=== PATIENT | male | born 1960 | race Caucasian/White ===

== ENCOUNTER → 2020-08-30 | Day surgery (SDC) | payer BC ==
[2020-08-25 18:10] VITALS: BMI 37.3
[~2020-08-30] MED LIST: LACTATED RINGERS 1,000 ML IV SCH; LIDOCAINE 1% (10MG/ML) FOR IV START INTRADERMA PRN
[2020-08-30 11:16] VITALS: BP 139/94; PULSE 72; RESP 16; TEMP 98
[2020-08-30 12:15] LABS: Basophils # (A) 0.1 k/uL (0-0.2); Basophils % (A) 1 %; Eosinophils # (A) 0.2 k/uL (0-0.7); Eosinophils % (A) 2 %; HCT 43.5 % (39.0-53.0); Lymphocytes # (A) 1.3 k/uL (1.0-4.8); Lymphocytes % (A) 18 %; MCH 32.5 pg (25.0-35.0); MCHC 34.5 g/dL (31.0-37.0); Mean Platelet Volume 8.6; Monocytes # (A) 0.5 k/uL (0-1.0); Monocytes % (A) 7 %; Neutrophils # (A) 4.8 k/uL (1.3-7.7); Neutrophils % (A) 69 %; Platelet Count 150 k/uL (150-450); RBC 4.63 m/uL (4.30-5.90); RDW 12.4 % (11.5-15.5); WBC 6.9 k/uL (3.8-10.6)
[2020-08-30 12:21] LABS: Albumin 4.2 g/dL (3.5-5.0); Calcium 9.6 mg/dL (8.4-10.2); Potassium 4.6 mmol/L (3.5-5.1); Total Bilirubin 0.9 mg/dL (0.2-1.3); Total Protein 7.5 g/dL (6.3-8.2)
== END ==
LOC: ORWHC2ENDO 10:00
PROVIDERS: ATTEND Internal Medicine Gastroenterology
DX: K83.9 Disease of biliary tract, unspecified (principal); Z53.9 Procedure and treatment not carried out, unspecified reason
CPT/HCPCS: 80053; 85025

== ENCOUNTER → 2020-09-08 | Outpatient (CLI) | payer BC ==
--- NOTE | 2020-09-08 14:44 | CT ---
EXAMINATION TYPE: CT abdomen wo/w con DATE OF EXAM: 09/08/2020 COMPARISON: Outside ultrasound report August 01, 2020 HISTORY: Abnormal findings of Liver and Billary tract CT DLP: 2234.2 mGycm, Automated Exposure Control for Dose Reduction was Utilized. CONTRAST: CT scan of the abdomen is performed with oral and without and with IV Contrast, patient injected with 100 mL of Isovue 300. FINDINGS: LUNG BASES: Partial visualization of a right-sided pacemaker/defibrillator wires. Coronary stent and/ or calcification in the RCA distribution. LIVER/GB: Liver isodense relative to the spleen on noncontrast images consistent with mild diffuse fa tty infiltration. Contracted gallbladder. No intrahepatic biliary dilatation. Common bile duct measur es up to 9 mm at ruth hepatis which is mildly dilated. No obstructing calcified gallstone noted. PANCREAS: No significant abnormality is seen. SPLEEN: No significant abnormality is seen. ADRENALS: No significant abnormality is seen. KIDNEYS: No renal stones on noncontrast images. No concerning solid or cystic renal mass or hydronep hrosis. BOWEL: Oral contrast does not reach colonic level. No suspicious bowel dilatation. Normal appearing a ppendix from base of cecum. LYMPH NODES: No greater than 1cm abdominal lymph nodes are appreciated. OSSEOUS STRUCTURES: [id number] multilevel spurring. Facet arthropathy lower lumbar levels. OTHER: Moderate mixed plaque of the aorta extends into branch vessels. Tiny fat-containing umbilical hernia axial image 53. IMPRESSION: Mild diffuse fatty infiltration of liver confirmed. Mild extrahepatic biliary dilatation without significant intrapelvic biliary dilatation confirmed. No concerning focal intrahepatic mass o r surrounding ascites.
== END ==
LOC: RADCTMAIN 12:34
PROVIDERS: ATTEND Internal Medicine Gastroenterology
DX: K76.0 Fatty (change of) liver, not elsewhere classified (principal); K83.8 Other specified diseases of biliary tract
CPT/HCPCS: 74170; Q9967

== ENCOUNTER 2024-04-20 14:50 | Emergency (ER) | payer BC, OTHER ==
--- NOTE | 2024-04-20 16:04 | ED ---
Abdominal Pain HPI - General Chief Complaint: Abdominal Pain Stated Complaint: Back/abd pain Time Seen by Provider: 04/20/24 14:55 Source: patient Mode of arrival: ambulatory Limitations: no limitations - History of Present Illness Initial Comments: 63-year-old male with past medical history of coronary artery disease status post AICD, diabetes, hypertension who presents emergency department with right lower quadrant abdominal pain and right lower lumbar pain. States that on April 15 he was at work lifting a case of beer. States that he lifted and turned and heard a pop in his lower back. He has had right sided abdominal pain which has progressed and now wraps around to the right lower quadrant. He also has pain that radiates into his testicle. He denies any saddle anesthesia but does admit to some tingling to the anterior right thigh. No bowel or bladder incontinence. He has been taking Advil for the pain and following up with [facility]. He was seen today in clinic. They did recommend that he have some type of imaging performed due to the pain wrapping around to the anterior aspect. He denies any fevers. No weakness in his legs but does have painful range of motion. Patient is ambulatory. No other alleviating, precipitating modifying factors - Related Data Home Medications Medication Instructions Recorded Confirmed Apixaban [Eliquis] 5 mg PO BID 08/25/20 08/25/20 Atorvastatin [Lipitor] 40 mg PO DAILY 08/25/20 08/25/20 Gabapentin [Neurontin] 300 mg PO Q12H 08/25/20 08/25/20 Insulin Aspart [NovoLOG] 0 units SQ AC-LUNCH 08/25/20 08/25/20 Insulin Aspart [NovoLOG] 0 units SQ AC-SUPPER 08/25/20 08/25/20 Insulin Aspart [NovoLOG] 6 units SQ AC-BRKFST 08/25/20 08/25/20 Insulin Detemir (Levemir) [Levemir] 15 unit SQ DAILY 08/25/20 08/25/20 Losartan Potassium [Cozaar] 100 mg PO DAILY 08/25/20 08/25/20 Spironolactone [Aldactone] 25 mg PO DAILY 08/25/20 08/25/20 carvediloL [Coreg] 25 mg PO BID 08/25/20 08/25/20 hydroCHLOROthiazide [Hydrodiuril] 25 mg PO DAILY 08/25/20 08/25/20 Allergies Allergy/AdvReac Type Severity Reaction Status Date / Time fish derived Allergy Swelling/Ra Verified 04/20/24 16:48 sh Review of Systems ROS Statement: Those systems with pertinent positive or pertinent negative responses have been documented in the HPI. ROS Other: All systems not noted in ROS Statement are negative. Past Medical History Past Medical History: Coronary Artery Disease (CAD), Diabetes Mellitus, Hypertension Additional Past Medical History / Comment(s): AICD. Type I DM. c/o "tingling on Rt side of stomach." History of Any Multi-Drug Resistant Organisms: None Reported Past Surgical History: AICD, Coronary Bypass/CABG, Heart Catheterization, Hernia Repair, Orthopedic Surgery Additional Past Surgical History / Comment(s): 5 way CABG 08/2019. [employer] AICD. Rt Knee surg. Abd hernia. Colonoscopy Past Anesthesia/Blood Transfusion Reactions: No Reported Reaction Type of Cardiac Device: AICD Device Placement Date:: 02/08/20 Past Psychological History: No Psychological Hx Reported Smoking Status: Former smoker - Past Family History Mother Family Medical History: No Reported History General Exam Limitations: no limitations General appearance: alert, in no apparent distress Head exam: Present: atraumatic, normocephalic, normal inspection Eye exam: Present: normal appearance, PERRL, EOMI. Absent: scleral icterus, conjunctival injection, periorbital swelling ENT exam: Present: normal exam, mucous membranes moist Neck exam: Present: normal inspection. Absent: tenderness, meningismus, lymphadenopathy Respiratory exam: Present: normal lung sounds bilaterally. Absent: respiratory distress, wheezes, rales, rhonchi, stridor Cardiovascular Exam: Present: regular rate, normal rhythm, normal heart sounds. Absent: systolic murmur, diastolic murmur, rubs, gallop, clicks GI/Abdominal exam: Present: soft, tenderness (Right lower quadrant pain), normal bowel sounds. Absent: distended, guarding, rebound, rigid Extremities exam: Present: normal inspection, full ROM, normal capillary refill. Absent: tenderness, pedal edema, joint swelling, calf tenderness Back exam: Present: CVA tenderness (L), paraspinal tenderness (l4-l5. 5/5 muscle strength bilateral lower extremities, to include hip flexors, knee extensors, ankle and great toe dorsiflexors and foot plantar flexors. Intact sensation over the medial, lateral and dorsal bilateral lower extremities) Neurological exam: Present: alert, oriented X3, CN II-XII intact Psychiatric exam: Present: normal affect, normal mood Skin exam: Present: warm, dry, intact, normal color. Absent: rash Course Vital Signs 04/20/24 14:54 Temperature 97.5 F L Pulse Rate 80 Respiratory 22 Rate Blood Pressure 127/84 O2 Sat by Pulse 98 Oximetry Medical Decision Making - Medical Decision Making Was pt. sent in by a medical professional or institution (, PA, BORE MILL OPERATOR, urgent care, hospital, or long term...) When possible be specific @ -Sent in by the [facility] Did you speak to anyone other than the patient for history (EMS, parent, family, police, friend...)? What history was obtained from this source @ -No Did you review nursing and triage notes (agree or disagree)? Why? @ -I reviewed and agree with nursing and triage notes Were old charts reviewed (outside hosp., previous admission, EMS record, old EKG, old radiological studies, urgent care reports/EKG's, long term records)? Report findings @ -I reviewed the clinic note from [facility] which was completed today Differential Diagnosis (chest pain, altered mental status, abdominal pain women, abdominal pain men, vaginal bleeding, weakness, fever, dyspnea, syncope, headache, dizziness, GI bleed, back pain, seizure, CVA, palpatations, mental health, musculoskeletal)? @ -Differential Back Pain: Strain, zoster, cauda equina syndrome, epidural abscess, vertebral osteomyelitis, discitis, fracture, subluxation, disc herniation, DJD, spinal stenosis, dissection, AAA, pancreatitis, peptic ulcer disease, pyelonephritis, kidney stone, this is not meant to be an all-inclusive list. EKG interpreted by me (3pts min.). @ -Not done X-rays interpreted by me (1pt min.). @ -None done CT interpreted by me (1pt min.). @ -Yes and demonstrates herniated disc at L4-L5 U/S interpreted by me (1pt. min.). @ -None done What testing was considered but not performed or refused? (CT, X-rays, U/S, labs)? Why? @ -None What meds were considered but not given or refused? Why? @ -Steroids and muscle relaxers were offered however patient wanted to go through [facility] for his prescriptions Did you discuss the management of the patient with other professionals (professionals i.e. , PA, BORE MILL OPERATOR, lab, RT, psych nurse, clinical social worker, emergency medicine medical director, teacher, quality officer, therapeutic case manager)? Give summary @ -No Was smoking cessation discussed for >3mins.? @ -No Was critical care preformed (if so, how long)? @ -No Were there social determinants of health that impacted care today? How? (Homelessness, low income, unemployed, alcoholism, drug addiction, transportation, low edu. Level, literacy, decrease access to med. care, half-way, rehab)? @ -No Was there de-escalation of care discussed even if they declined (Discuss DNR or withdrawal of care, Hospice)? DNR status @ -No What co-morbidities impacted this encounter? (DM, HTN, Smoking, COPD, CAD, Cancer, CVA, ARF, Chemo, Hep., AIDS, mental health diagnosis, sleep apnea, morbid obesity)? @ -None Was patient admitted / discharged? Hospital course, mention meds given and route, prescriptions, significant lab abnormalities, going to OR and other pertinent info. @ -Upon arrival patient seen and evaluated in [facility] . Thorough history and physical exam was performed. CT was performed which demonstrates a normal appe ndix. No hernia. Patient does have a herniated disc at L4-L5. This is discussed with the patient. He has no signs of cauda equina. Patient was discharged home at this time and follow back up with [facility]. I did offer pain medications, steroids and muscle relaxers however patient wanted to go through his [facility] doctor for these recommendations. He is to call and make an appointment follow-up within next 2 to 3 days and return for any new or worsening symptoms Undiagnosed new problem with uncertain prognosis? @ -No Drug Therapy requiring intensive monitoring for toxicity (Heparin, Nitro, Insulin, Cardizem)? @ -No Were any procedures done? @ -No Diagnosis/symptom? @ -Acute lumbar back pain, lumbar radiculopathy, lifting injury Acute, or Chronic, or Acute on Chronic? @ -Acute Uncomplicated (without systemic symptoms) or Complicated (systemic symptoms)? @ -Complicated Side effects of treatment? @ -No Exacerbation, Progression, or Severe Exacerbation? @ -No Poses a threat to life or bodily function? How? (Chest pain, USA, NC, pneumonia, PE, COPD, DKA, ARF, appy, cholecystitis, CVA, Diverticulitis, Homicidal, Suicidal, threat to staff... and all critical care pts) @ -No Disposition Clinical Impression: Herniated disc, Lumbar radiculopathy Disposition: HOME SELF-CARE Condition: Stable Instructions (If sedation given, give patient instructions): Lumbar Disc Herniation (ED), Lumbar Radiculopathy (ED) Additional Instructions: Please follow-up with [facility] for further management of your pain. They may follow up the CAT scan with an MRI if they feel that this is appropriate. Return for any new or worsening symptoms Is patient prescribed a controlled substance at d/c from ED?: No Referrals: Nupur Eller MD [Primary Care Provider] - 1-2 days Time of Disposition: 16:48
--- NOTE | 2024-04-20 16:26 | CT ---
EXAMINATION TYPE: CT abdomen pelvis wo con, CT lumbar spine wo con CT DLP: Combined DLP of 1839.4 mGycm, Automated exposure control for dose reduction was used. DATE OF EXAM: 04/20/2024 4:01 PM COMPARISON: CT abdomen pelvis most recent from 09/08/2020 CLINICAL INDICATION: Male, 63 years old with history of rlq/groin pain; RLQ/Groin pain. TECHNIQUE: Axial CT abdomen pelvis wo con, CT lumbar spine wo con;Sagittal and coronal reformats wer e created on a separate workstation. Axial imaging of the lumbar spine with sagittal and coronal reformats. Contrast used: mL of , (none if empty) Oral contrast used: without Oral Contrast (none if empty) FINDINGS: LOWER CHEST: Cardiac conduction the terminating in right ventricle and atrium. Coronary artery atherosclerosis. The heart is mildly enlarged for size. ABDOMEN LIVER: Unremarkable GALLBLADDER AND BILE DUCTS: Unremarkable. PANCREAS: Unremarkable. SPLEEN: Unremarkable. ADRENAL GLANDS: Unremarkable. KIDNEYS AND URETERS: Streaky edema/fat stranding around the kidneys bilaterally. No evidence of hydro nephrosis or renal calculus. The ureters are unremarkable. PELVIS BLADDER: Unremarkable REPRODUCTIVE: Unremarkable. ABDOMEN & PELVIS STOMACH AND BOWEL: No evidence of bowel obstruction. Scattered colonic diverticula. PERITONEUM/RETROPERITONEUM: No evidence of pneumoperitoneum or free fluid. VASCULATURE: Severe atherosclerotic calcifications are present throughout the abdominal aorta and its branches. No evidence of aortic aneurysm. MUSCULOSKELETAL: No acute osseous abnormalities. Moderate disc degeneration changes are present throu ghout the thoracolumbar spine. L3-L4 moderate neural foraminal stenosis bilaterally secondary to face t arthropathy.L4-L5 disc bulging with facet joint arthropathy with moderate bilateral neural foramina l stenosis in mild to moderate spinal canal stenosis. L5-S1 facet joint arthropathy with moderate prudence ateral neural foraminal stenosis. Lucent area within the L4 vertebral body is unchanged from prior in 2020. No evidence for spinal fracture. LYMPH NODES: No gross evidence for lymphadenopathy. SOFT TISSUE/ABDOMINAL WALL: Fat-containing left inguinal hernia. Surgical clip in the right anterior thigh. IMPRESSION: 1. No evidence for acute abdominal process. The appendix is normal. 2. L4-L5 disc bulge with at least mild to moderate spinal canal stenosis. 3. L4 lucent lesion measuring 12 mm. Stable back to 09/08/2020 and likely benign. 4. Mild multilevel degeneration changes. L3-L4 and L4-L5 moderate bilateral neural foraminal stenosi s. 5. Mild cardiomegaly. 6. Severe atherosclerosis of the arterial vasculature. 7. Fat-containing left inguinal hernia. No inguinal hernia visualized. [facility], Workstation: [id number], 04/20/2024 4:23 PM
[2024-04-20] MEDS: LIDOCAINE 4% PATCH TOPICAL ONE (16:46)
[2024-04-20 17:16] VITALS: BP 122/82; PULSE 73; RESP 18; TEMP 97.7
== END 2024-04-20 17:16 | disposition home or self-care (01) ==
LOC: EC 14:50
CPT/HCPCS: 72131; 74176; 99284

== ENCOUNTER 2024-05-27 07:37 | Day surgery (SDC) | payer BC, OTHER ==
[2024-05-27] MEDS: diazePAM 5 MG TAB PO STA (08:43)
[2024-05-27 09:31] VITALS: TEMP 97.5
--- NOTE | 2024-05-27 11:31 | CT ---
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 Automated exposure control for dose reduction was used. FINDINGS: The lumbar vertebral segments are normal in height and alignment and there is no fracture or subluxat ion. The disc spaces are well preserved in height. There is mild degenerative disc disease at the T11/T12 level where there is anterior spondylosis and mild vacuum phenomena. There is mild anterior spondylos is throughout the lumbar spine. There is no lumbar disc herniation. There is mild facet arthropathy at the L3-4, L4-5 and L5-S1 levels. At the L4-5 level, there is severe spinal stenosis secondary to circumferential disc bulge and marke d thickening of the ligamentum flavum. There is mild sacroiliitis. There is no bony neural foraminal encroachment. IMPRESSION: Severe spinal stenosis at the L4-5 level as described above. No significant lumbar degenerative disc disease. No lumbar disc herniation. No spondylolysis or spondylolisthesis. [facility], , 05/27/2024 11:28 AM
[2024-05-27 11:34] VITALS: RESP 16
--- NOTE | 2024-05-27 12:10 | FL ---
EXAMINATION TYPE: FL myelogram lumbosacral DATE OF EXAM: 05/27/2024 11:09 AM COMPARISON: CT same day CLINICAL INDICATION:Male, 63 years old with history of M47.816 SPONDYLOSIS W/O MYELOPATHY OR RADICULO PATH; TECHNIQUE/FINDINGS: Informed consent was obtained including discussion of the risks and benefits. Timeout was taken per p rotocol. Real-time fluoroscopy was performed to localize the lumbar spine access site. The patient wa s prepped and draped. Under sterile technique with local anesthesia a 22-gauge spinal needle was intr oduced into what was thought the arachnoid space 12 cc of Isovue-200 M was injected into the epidural fat space adjustment of the needle was then taken and clear CSF was withdrawn and A total of 12 cc o f Isovue-300 M was injected with appropriate opacification of the thecal sac. 12 cc of Isovue-200 M w as injected into the epidural fat space. Total fluoroscopy time was 4 min 31 seconds Total fluoroscopic images 0. Radiographs taken: 18 DAP: Not Reported by machine [id number] IMPRESSION: Successful lumbar puncture with injection for CT myelogram. CT pending. [facility], , 05/27/2024 12:08 PM
[2024-05-27 18:10] VITALS: BP 102/65; PULSE 81
== END 2024-05-27 14:37 | disposition home or self-care (01) ==
LOC: RADPROMAIN 07:37
PROVIDERS: ATTEND Orthopaedic Surgery
DX: M47.26 Other spondylosis with radiculopathy, lumbar region (principal); M48.061 Spinal stenosis, lumbar region without neurogenic claudication; M51.16 Intervertebral disc disorders with radiculopathy, lumbar region; Z79.899 Other long term (current) drug therapy; Z79.82 Long term (current) use of aspirin; Z79.01 Long term (current) use of anticoagulants
CPT/HCPCS: 62304; 72132; Q9966; Q9967

== ENCOUNTER → 2024-09-02 | Outpatient (CLI) | payer BC | END | disposition home or self-care (01) | LOC: LABPAT 12:50 | PROVIDERS: ATTEND Orthopaedic Surgery | DX: Z01.812 Encounter for preprocedural laboratory examination (principal); M48.061 Spinal stenosis, lumbar region without neurogenic claudication; Z22.322 Carrier or suspected carrier of Methicillin resistant Staphylococcus aureus | CPT/HCPCS: 86850; 86900; 86901; 87070 ==

== ENCOUNTER 2024-09-06 05:48 | Day surgery (SDC) | payer BC ==
--- NOTE | 2024-09-05 12:06 | P.HPOR ---
History of Present Illness H&P Date: 09/01/24 .D:Date: 09/01/24 : 05:11pm .T:Title: *PRE-OP H1 [facility] [address] [place] [id number]| PROVIDER: MATTHEW GOOD DO CLINICAL SUMMARY: *Mr. Mcclure is a 63-year-old male with a history of L4-5 spondylosis with stenosis, neurogenic claudication, radiculopathy, and low back pain following a work-related injury on 04/15/2024. Patient reports sharp burning lumbar pain radiating to the right groin and bilateral lower extremities with associated tingling and burning sensation. Currently manages pain with Gabapentin and Celebrex with minimal relief. Physical examination reveals paralumbar tenderness, positive straight leg raise test, L4-5 dermatomal deficit, and 4/5 strength in bilateral lower extremities. CT myelogram demonstrates severe spinal stenosis at L4-5 level. Patient has failed conservative management including physical therapy, activity modification, and medications. After thorough discussion of risks, benefits, and alternatives, patient has elected to proceed with L4-5 laminectomy decompression. Pre-operative clearance has been requested from PCP, and surgery will be scheduled at [facility]. Patient has been advised to remain off work until further notice and continue home exercises as tolerated. DEMOGRAPHICS: Age: 63 year Height: 5'11" Weight: 249 lbs BP:130/70 BMI: 34.78 kg/m2 Occupation: *Sales-off CC: *lumbar pain VAS: * 7 HISTORY: Mr. Mcclure presents to the office today, 09/01/24, for *a pre-operative appointment preceding his L4-5 LAMINECTOMY DECOMPRESSION. 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 In addition to his lumbar pain patient reports that it radiates into the right groin and down the bilateral lower extremities, associated with tingling and burning sensation. Patient states that his symptoms are exacerbated with prolonged ambulation, sitting to standing, and bending. Patient states that he has been off work at this time. He has trialed a heating pad and is currently taking Gabapentin and Celebrex with some relief of his symptoms. He states these are only helping minimally and he is still in severe pain that is making it difficult for his to perform his activities of daily living. Patient ambulates independently. * Patient denies any f/c/sob/cp, perineal numbness or tingling, bowel, or bladder incontinence/retention. * The patients past social, medical, family, surgical history, as well as review of systems, have been reviewed. Please refer to the History and Physical form that has been scanned into our electronic medical record system. * 16 points review of systems completed and as stated in HPI, all other systems reviewed are negative. PAST TREATMENTS: PAST IMAGING: -YES, xray, CT scan, CT myelogram - TRAUMA RELATED: -YES, hurt lifting beer at work - WORK RELATED: -YES, Hurt lifting beer at work - PT IN LAST 6 MONTHS: -YES, no relief - PHYSICIAN DIRECTED HOME EXERCISE PROGRAM: -YES, no relief - ACTIVITY MODIFICATION: -YES - MEDICATIONS: -YES, Gabapentin and Celebrex - ALTERNATIVE INTERVENTIONS (CHIROPRACTIC, ACUPUNCTURE, MASSAGE, RICE): -YES - BRACING: -NO - INJECTIONS (NEVA, TF, RFA): -NO MEDICAL HISTORY: Past Medical History: REVIEWED STATED IN CHART Past Surgical History: REVIEWED STATED IN CHART Social History: REVIEWED STATED IN CHART SMOKING: Never smoker ETOH: None SUBSTANCES: None Family History: REVIEWED STATED IN CHART P1 Current Medications: Rx: apixaban 5 mg tablet Ref: 0 Instructions: take 1 tablet (5 mg) by oral route 2 times per day Rx: aspirin 81 mg tablet,delayed release Ref: 0 Instructions: take 1 tablet (81 mg) by oral route once daily Rx: atorvastatin Ref: 0 Rx: carvediloL 25 mg tablet Ref: 0 Instructions: take 1 tablet (25 mg) by oral route 2 times per day with food Rx: cyclobenzaprine 5 mg tablet Ref: 0 Instructions: take 1 tablet (5 mg) by oral route 3 times per day as needed for muscle spasm Rx: dapagliflozin propanediol 10 mg tablet Ref: 0 Instructions: take 1 tablet (10 mg) by oral route once daily in the morning Rx: furosemide 20 mg tablet Ref: 0 Instructions: take 1 tablet (20 mg) by oral route once daily Rx: levamir , Ref: 0 Rx: Motrin Ref: 0 Rx: NovoLOG U-100 Insulin aspart Ref: 0 Rx: Ozempic Ref: 0 Rx: sacubitriL 49 mg-valsartan 51 mg tablet Ref: 0 Instructions: take 1 tablet by oral route 2 times per day Rx: spironolactone Ref: 0 Rx: gabapentin 600 mg tablet Ref: 0 Instructions: take 1 tablet (600 mg) by oral route 3 times per day P1 PHYSICAL EXAM: General: AOX3, NAD, Well hydrate, well nourished, in no acute distress HEENT: No lumps or masses Extremities: No color changes, no pooling INTEGUMENT: Appearance: Normal color and turgor Surgical Incisions: N/A Hairy Patches: ABSENT Dorsal Skin Dimples: Normal [employer] spots: ABSENT PALPATION: TTP Midline: NO Paracervical: NO Parathoracic: NO Paralumbar: YES SIJ TESTING (Champ's, FABER4, Compression, Distraction, Thigh Thrust, Hip Thrust): TESTED * POSITIVE FINDINGS: NEGATIVE FINDINGS: Champ's, FABER4, Compression, Distraction, Thigh Thrust, Hip Thrust POSTURAL BALANCE: Coronal: BALANCED Sagittal: BALANCED Shoulder height: LEVEL Pelvic Girdle: LEVEL ROM AND APPEARANCE: Neck: UNRESTRICTED Lumbar: RESTRICTED with pain Shoulders: Symmetrical Hips: Symmetrical Knees: Symmetrical Hands: Symmetrical Feet: Symmetrical VASCULAR STATUS: PALPABLE PULSES B/L UE AND LE 2/4 RAD/ULNAR/DP/PT Edema: NONE NEUROLOGICAL EXAMINATION: Mental Status: Awake, alert, fully oriented with normal attention, mehrdad ntration, and memory. Fluent appropriate speech. CRANIAL NERVES: I: Olfactory not assessed. II: Visual acuity normal, no visual field deficit noted with confrontation. III, IV: Normal pupillary reflexes & intact extraocular movements without nystagmus. V, : Intact symmetrical facial sensation. VII: Intact symmetrical facial motor movement: Hearing intact. IX, X: Intact gag, swallow, & normal voice. XI: Sternocleidomastoid, trapezius function intact. XII: Tongue midline with normal movements. TENSIONING: * L'HERMITTE'S SIG:NEG SPURLUNG'S SIGN:NEG UPPER EXTREMITY TENSIONING SIGNS: NEG CUBITAL TUNNEL COMPRESSION:NEG TINELS AT WRIST:NEG STRAIGHT LEG RAISE:POS CONTRALATERAL STRAIGHT LEG RAISE: NEG MOTOR EXAM (0-5/5, NT) Muscle appearance: Symmetrical, without signs of atrophy or dystrophy UPPER EXTREMITY RIGHT LEFT Shoulder Abduction 5 5 Biceps 5 5 Triceps 5 5 Wrist Extension 5 5 Hand Intrinsics 5 5 Master Plumber 5 5 LOWER EXTREMITY RIGHT LEFT Hip Flexion 4 4 Knee Extension 4 4 Knee Flexion 4 4 Dorsiflexion 4 4 Plantarflexion 4 4 EHL 4 4 FHL 4 4 REFLEXES (0-4/2, NT): RIGHT LEFT Bicep 2 2 Brachioradialis 2 2 Triceps 2 2 Patellar 2 2 Achilles 2 2 PATHOLOGICAL REFLEXES: RIGHT LEFT IBARRA'S ABSENT ABSENT CLONUS ABSENT ABSENT BABINSKI ABSENT ABSENT RECTAL TONE: INTACT/NT SENSATION (0-4, NT): Sensation intact to LT and Pain * C5-T1 distribution BUE * L2-S2 distribution BLE *Exceptions below* DERMATOMAL DEFICIT/RADICULAR PATTERN: L4-5 BLE GAIT AND FUNCTIONAL EVALUATION: AMBULATORY AID NONE ROMBERG'S TEST INTACT HAND AND FINGER DEXTERITY INTACT YES DYSDIADOCHOKINESIA EXAM NEG B/L YES TOE/HEEL WALK INTACT WITH GOOD BALANCE YES SQUAT AND RISE W/O ASSISTANCE TO 60 DEG KNEE FLEXION ABLE with pain SINGLE LEG STANCE INTACT with pain TRENDELENBURG NEG IMAGING: XRay Lumbar Multiview (AP, Lateral, Flexion, Extension) with AP pelvis; 5 views taken at [facility] on 05/03/24: Mild multilevel spondylitic and degenerative changes with preserved alignment. Multilevel diminished disc height. L3-L5 foraminal stenosis. Vertebral body heights are preserved. No acute osseous abnormalities. Pelvis: The visualized sacrum and iliac wings are within normal limits. CT scancompleted at [facility] from 04/20/24 of LumbarSpine: IMPRESSION: 1. L4-L5 disc bulge with at least mild to moderate spinal canal stenosis. 2. L4 lucent lesion measuring 12 mm. Stable back to 09/08/2020 and likely benign. 3. Mild multilevel degeneration changes. L3-L4 and L4-L5 moderate bilateral neural foraminal stenosis. CT Myelogram scancompleted at [facility] from 05/27/24 of LumbarSpine: IMPRESSION: Severe spinal stenosis at the L4-5 level as described above. No significant lumbar degenerative disc disease. No lumbar disc herniation. No spondylolysis or spondylolisthesis. IMPRESSION: It was my pleasure to have seen and examined Tru. I reviewed the patient's clinical syndrome, physical findings, and imaging studies during the appointment today. It is my impression that the patient has a diagnosis of. 1.L4-5 spondylosis with stenosis 2.Lower extremity radiculopathy 3. Neurogenic claudication 4. Low back pain PLAN: DISCUSSION: -I have discussed with the patient their clinical signs and symptoms, imaging, and treatment options. We have discussed risks, benefits, potential outcomes and natural course as pertains top their issues. The patient understands and would like to proceed as follows below: SURGICAL RECOMMENDATION -L4-5 LAMINECTOMY DECOMPRESSION THERAPIES - -Cont. with home exercises and home PT exercises as able -Cont. with Heat/Ice as warranted -Cont. with supplementation Vit D, Vit C, Ca2+, High protein diet -OK for massage or other alternative treatment modalities as able. If it exacerbates your sx do not continue ACTIVITY -Continue off work -Recommend walking up to 30 min 2x daily on a flat easy surface with good suppor t. MEDICATIONS -Take as directed -Cont. home medications as directed by your PCP. Check with your PCP for any medication interactions or issues if needed. IMAGING -N/A INJECTIONS -N/A Spine Surgery Risk Review Mr. Mcclure is presenting for evaluation of lumbar pain. It was my pleasure to have seen and examined Mr. Mcclure. In our visit today we have had a chance to go over subjective complaints, physical examination findings and treatments including the natural course history without intervention and various interventional options. The patients imaging demonstrates: XRay Lumbar Multiview (AP, Lateral, Flexion, Extension) with AP pelvis; 5 views taken at [facility] on 05/03/24: Mild multilevel spondylitic and degenerative changes with preserved alignment. Multilevel diminished disc height. L3-L5 foraminal stenosis. Vertebral body heights are preserved. No acute osseous abnormalities. Pelvis: The visualized sacrum and iliac wings are within normal limits. CT scancompleted at [facility] from 04/20/24 of LumbarSpine: IMPRESSION: 1. L4-L5 disc bulge with at least mild to moderate spinal canal stenosis. 2. L4 lucent lesion measuring 12 mm. Stable back to 09/08/2020 and likely benign. 3. Mild multilevel degeneration changes. L3-L4 and L4-L5 moderate bilateral neural foraminal stenosis. CT Myelogram scancompleted at [facility] from 05/27/24 of LumbarSpine: IMPRESSION: Severe spinal stenosis at the L4-5 level as described above. No significant lumbar degenerative disc disease. No lumbar disc herniation. No spondylolysis or spondylolisthesis. On physical exam, Mr. 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 In addition to his lumbar pain patient reports that it radiates into the right groin and down the bilateral lower extremities, associated with tingling and burning sensation. Patient states that his symptoms are exacerbated with prolonged ambulation, sitting to standing, and bending. Patient states that he has been off work at this time. He has trialed a heating pad and is currently taking Gabapentin and Celebrex with some relief of his symptoms. He states these are only helping minimally and he is still in severe pain that is making it difficult for his to perform his activities of daily living. Patient ambulates independently. I have explained to the patient that as their condition progresses it will cause further neurological deficits and eventual paralysis. Based on the patients imaging, physical exam, and the rapid progression and disabling nature of their symptoms, at this time I recommend surgery in the form of a: L4-5 LAMINECTOMY DECOMPRESSION. I discussed the risk and benefits of this procedure at length with Mr. Mcclure. The patient [significant other] agreed to considered pursuing the procedure abovementioned. Prior to surgery, she should follow up with her PCP (Cardio, ID, IM etc) for clearance. Questions were invited and answered, and the patient wishes to proceed as outlined below. Currently, I am recommendin.L4-5 LAMINECTOMY DECOMPRESSION 2.Follow up with PCP for surgical clearance 3.Review of surgical risks and benefits as well as an educational packet on the proposed surgical procedure. Risks: All surgical procedures come with inherent risks, including those related to positioning, anesthesia, intraoperative findings, and postoperative complications. It is important to understand that surgery does not come with any guarantee of a successful outcome as complications and adverse events are always possible. The patient was given a handout in office today discussing the surgical procedure and risks associated with the intervention, both of which were discussed with the patient. These risks include but are not limited to the following: * Experiencing same, different or even worse symptoms in back, neck, arms, or legs compared to before surgery. Requiring further surgery or other forms of treatment presently or at some time in the future at same or other levels of the intended spine surgery. On an extreme but fortunately relatively rare basis severe complication such as blindness, stroke, heart attack, temporary and/or permanent nerve injury, paralysis, coma, or may occur, sometimes without known explanation. Surgical complications may include but are not limited to risk of infection, fluid accumulation in the surgical dissection site, including a seroma or hematoma, that requires additional surgery, wound drainage, bleeding, new numbness or weakness, vision changes/loss, spinal fluid leakage, non-healing and/or infected incision, headaches, difficulty or inability to swallow, hoarseness, hemopneumothorax, pneumothorax, impotence, retrograde ejaculation, vaginal dryness; injury to nerves, spinal cord, blood vessels, lymphatics or other vital organs (i.e., bowel injury, injury to the great vessels); heterotopic bone formation; complications related to the hardware such as screws, rods, cages including misplaced hardware, device failure, instrumentation at the wrong spine level, hardware fracture/breakage, or hardware loosening; vertebral failure of the spinal column above or below the newly placed hardware; retained surgical instrumentations or devices and the need for further surgery. * Medical risks of the planned spine surgery include but are not limited to generalized Infections to the whole body or local areas outside of the surgical site (sepsis), heart attack, bleeding, anaphylaxis, meningitis, seizure, epilepsy, hearing loss, burn blair, laceration of the head or other areas of the body, bruising, hypersensitivity of the skin, bladder over distension; allergic reaction; shoulder injury related to positioning; fat, blood and air clots to other areas of the body like heart, lungs, brain; failure of internal organs such as lungs, kidneys, liver and excessive bleeding. If blood transfusions are necessary, note that transfusions may cause intolerance reactions such as anaphylaxis or other complex reactions. Despite best efforts, the results of spine surgery might not heal in terms of bone, soft tissues such as skin, fascia, ligaments, and joints. Additionally, in order to achieve best possible results, spine surgery may be carried out beyond the initially planned levels and involve decompression, fusion including insertion of hardware at levels other than the original intended area of surgical interest change some portions of the procedure in order to ensure the best possible outcomes. With spine surgery and spinal fusion, there are different off label uses of instrumentation (devices, implants and hardware) as well as biological substances (bone morphogenic proteins, demineralized bone matrix) as well as using extra bone from allograft sources (i.e. cadaver bone) or autograft (iliac crest bone, ribs, or the spine itself). The patient has been given information about these practices and their inherent risks and benefits. [facility] is an educational center that serves as a training facility for neurosurgical and orthopedic [employer] and Nursing students. Physician assistants are medically trained surgical providers who function in the outpatient, inpatient, and operating room setting under the direct supervision of the attending surgeon. [facility] has multiple operating rooms with single and overlapping rooms running daily. They currently function under the required guidelines as produced by the [facility] Finance Committee with regards to the overlapping rooms and will continue to comply with changes to this policy as they occur. The requirements include and are complied with as follows: (1) the critical portions of the overlapping rooms will not occur at the same time, (2) the attending physician will be physically present during the critical portions of the procedure and immediately available during the entire case, and (3) a back-up attending is designated should the primary attending not be immediately a vailable. The patient has had a chance to review all the listed information, has been given print outs detailing this information, and has had all his/her questions answered to their satisfaction. It was my pleasure to have seen and examined Mr. Mcclure. In our visit today we have had a chance to go over my understanding of our patient's current condition, the natural course history without intervention and various interventional options. Questions were invited and answered, and the patient wishes to proceed as outlined above. I have seen and examined the patient for 25 minutes and we have spent more than 50% of the time in repeat and detailed counseling about the patient's condition, its natural course history with out and as much as can be predicted with surgery and re-review of various surgical treatment options. In conclusion, Mr. Mcclure requested we proceed with the above suggested surgery and are willing to accept risks and limitations of the suggested surgery as nature of the disease process and our best attempts at treatment for the condition. Medical Necessity: Mr. Mcclure, a 63-year-old male, presents with severe lumbar pain (VAS 8/10) with radiation to right groin and bilateral lower extremities that began on 04/15/2024 after a work-related injury. Conservative management including medications (Gabapentin, Celebrex), physical therapy, and home exercises has provided minimal relief. The patient demonstrates progressive neurological deficits including bilateral lower extremity weakness (4/5 strength), L4-5 dermatomal deficits, and positive straight leg raise. Imaging studies reveal severe L4-5 spinal stenosis with bilateral neural foraminal stenosis, confirmed by X-ray, CT, and CT myelogram. Surgical Rationale: Given the patient's progressive neurological deficits, failed conservative management, and severe spinal stenosis documented on imaging, surgical intervention with L4-5 laminectomy decompression is medically necessary and appropriate. Without intervention, the condition is expected to progress, potentially leading to further neurological deterioration and eventual paralysis. The surgical goals are to decompress the neural elements, prevent further neurological decline, and improve the patient's functional status and quality of life. FOLLOW UP: *POST-OP PLAN AT NEXT VISIT: * RECHECK PATIENT EDUCATION: Medications Reviewed: YES In our visit today Mr. Mcclure and I have had a chance to go over my understanding of the patient's current condition, the natural course history without intervention and various interventional options. Questions were invited and answered, and the patient wishes to proceed as outlined above. I will be sure to keep you updated after Mr. Mcclure returns here for further follow-up. Thank you again for your referral. Please do not hesitate to contact me if you have any further questions. Signed and authenticated by: Matthew Medeiros [facility] [address] [place] [id number] . This message is confidential, intended only for the named recipient(s) and may contain information that is privileged or exempt from disclosure under applicable law. If you are not the intended recipient(s), you are notified that the dissemination, distribution or copying of this information is prohibited. If you received this message in error, please notify the sender then delete this message. Past Medical History Past Medical History: Atrial Fibrillation, Coronary Artery Disease (CAD), COPD, Diabetes Mellitus, Hyperlipidemia, Hypertension Additional Past Medical History / Comment(s): AICD - shocked pt. once on 06/30/24, Type I DM, neuropathy, injured back lifting 2023 History of Any Multi-Drug Resistant Organisms: None Reported Past Surgical History: AICD, Coronary Bypass/CABG, Heart Catheterization, Hernia Repair, Orthopedic Surgery Additional Past Surgical History / Comment(s): 5 vessel CABG 08/2019. [employer] AICD. Rt Knee surg. Abd hernia. Colonoscopy Past Anesthesia/Blood Transfusion Reactions: No Reported Reaction Type of Cardiac Device: AICD Device Placement Date:: 02/08/20 Smoking Status: Former smoker - Past Family History Mother Family Medical History: No Reported History Father Family Medical History: Coronary Artery Disease (CAD) Medications and Allergies Home Medications Medication Instructions Recorded Confirmed Type Apixaban [Eliquis] 5 mg PO BID 08/25/20 09/01/24 History Atorvastatin [Lipitor] 40 mg PO DAILY 08/25/20 09/01/24 History Gabapentin [Neurontin] 300 mg PO TID 08/25/20 09/01/24 History Insulin Aspart [NovoLOG] See Protocol SQ ACHS 08/25/20 09/01/24 History Aspirin EC [Ecotrin Low Dose] 81 mg PO DAILY 04/20/24 09/01/24 History Dapagliflozin Propanediol [Farxiga] 10 mg PO DAILY 04/20/24 09/01/24 History Ergocalciferol [Vitamin D2 (1250 1,250 mcg PO BALLARD 04/20/24 09/01/24 History Mcg = 62231 Iu)] Furosemide [Lasix] 20 mg PO DAILY 04/20/24 09/01/24 History Sacubitril/Valsartan [Entresto 49 1 tab PO BID 04/20/24 09/01/24 History mg-51 mg Tablet] Semaglutide [Ozempic] 1 mg SQ SA 04/20/24 09/01/24 History Amiodarone [Cordarone] 200 mg PO DAILY 09/01/24 09/01/24 History Spironolactone [Aldactone] 25 mg PO DAILY 09/01/24 09/01/24 History carvediloL [Coreg] 25 mg PO BID 09/01/24 09/01/24 History Allergies Allergy/AdvReac Type Severity Reaction Status Date / Time fish derived Allergy Swelling/Ra Verified 09/01/24 13:01 Physical Examination Osteopathic Statement: *. No significant issues noted on an osteopathic structural exam other than those noted in the History and Physical/Consult.
[~2024-09-06 05:48] MED LIST changes: +GABAPENTIN 300 MG CAP PO PRN; -LACTATED RINGERS 1,000 ML IV SCH; -LIDOCAINE 1% (10MG/ML) FOR IV START INTRADERMA PRN; +TRANEXAMIC 1,000 MG/100ML-NACL 1,000 MG in SALINE 1 100ML.BAG IVPB PRN
[2024-09-06 06:55] LABS: Glucose,Whole Blood 162 mg/dL (70-110)
[2024-09-06] MEDS: LACTATED RINGERS 1,000 ML IV SCH (07:01)
[2024-09-06] MEDS: IV FLUID CONTINUATION 1,000 ML IV ONE ×5 (07:02→13:39)
[2024-09-06] MEDS: ACETAMINOPHEN TAB 500 MG TAB PO PRN (07:05)
[2024-09-06] MEDS: DEXAMETHASONE SOD PHOSPHATE 4 MG/ML 1 ML VIAL IV ONE (07:06)
[2024-09-06] MEDS: ONDANSETRON 4 MG/2 ML VIAL IVP PRN ×2 (07:06→21:46)
[2024-09-06] MEDS ORDERED: PHENYLEPHRINE-0.9% NACL SYG 1,000 MCG/10 ML SYRINGE ONE (07:28)
[2024-09-06] MEDS ORDERED: SUCCINYLCHOLINE CHLORIDE 200 MG/10 ML VIAL IV ONE (07:28)
[2024-09-06] MEDS ORDERED: fentaNYL (PF) 50 MCG/ML 2 ML AMP ONE (07:28)
[2024-09-06] MEDS ORDERED: ROCURONIUM 10 MG/ML (5 ML VIAL) IV ONE (07:28)
[2024-09-06] MEDS ORDERED: ePHEDrine 50 MG/ML 1 ML VIAL ONE (07:28)
[2024-09-06] MEDS ORDERED: GLYCOPYRROLATE 0.2 MG/ML 2 ML VIAL ONE (07:28)
[2024-09-06] MEDS ORDERED: MIDAZOLAM 2 MG/2 ML VIAL ONE (07:28)
[2024-09-06] MEDS ORDERED: ETOMIDATE 2 MG/ML 10 ML VIAL ONE (07:28)
[2024-09-06] MEDS ORDERED: NEOSTIGMINE 1 MG/ML 10 ML VIAL ONE (07:28)
[2024-09-06] MEDS ORDERED: PHENYLEPHRINE 10 MG/ML VIAL ONE (07:28)
[2024-09-06] MEDS ORDERED: LIDOCAINE 1% INJ 10MG/ML (20 ML MDV) ONE (07:28)
[2024-09-06] MEDS: ceFAZolin 3,000 MG in SODIUM CHLORIDE 0.9% IRRIGATIO 3,000 ML IRRIGATION ONE (08:05)
[2024-09-06] MEDS: BUPIVACAINE (PF) 0.5% 30 ML VIAL SQ ONE ×2 (08:05)
[2024-09-06] MEDS: LIDOCAINE 2%-EPI 1:100,000 20 ML VIAL SQ ONE ×2 (08:05)
[2024-09-06] MEDS: THROMBIN (BOVINE) 5,000 UNIT VIAL TOPICAL ONE (08:05)
[2024-09-06] MEDS: VANCOMYCIN 1,000 MG VIAL MISCELLANE ONE (09:16)
--- NOTE | 2024-09-06 09:35 | XR ---
EXAMINATION TYPE: XR lumbar spine 2 or 3V, [place] guidance operating room Intraoperative/procedural fluor oscopic services were provided. CLINICAL INDICATION:Male, 64 years old with history of LUMBAR LAMINECTOMY; , [facility]ATED [facility]IN [facility] FINDINGS: Postsurgical changes from lumbar laminectomy at L4-L5. No radiographic evidence for complication. Total fluoroscopy time is 5 seconds. DAP: 2.3174 Gycm2 Please see the operative/procedural note for further details. [facility], , 09/06/2024 9:32 AM
--- NOTE | 2024-09-06 09:42 | P.OP ---
Date of Procedure: 09/06/24 Preoperative Diagnosis: 1.L4-5 spondylosis with stenosis 2.Lower extremity radiculopathy 3. Neurogenic claudication 4. Low back pain Postoperative Diagnosis: 1.L4-5 spondylosis with stenosis 2.Lower extremity radiculopathy 3. Neurogenic claudication 4. Low back pain Procedure(s) Performed: 1. L4-5 BILATERAL LAMINECTOMY, PARTIAL MEDIAL FACETECTOMY AND FORAMINOTOMY FOR COMPLETE NEURAL DECOMPRESSION MOD22: THIS CASE TOOK 75% LONGER THAN EXPECTED DUE TO PATIENT BODY HABITUS, BMI > 30, PREVIOUSLY ON ELIQUIS WITH INCREASED BLEEDING, EXTENT AND SEVERITY OF PATHOLOGY. NOTES: -open -bilateral -midline Implants: NONE Anesthesia: GETA Surgeon: Nawaf Dorado Lighting Engineering Technician #1: Jaime Mason (WAS PRESENT AND ASSISTED WITH ALL ASPECTS OF THE CASE FROM POSITION TO DRESSING PLACEMENT) Estimated Blood Loss (ml): 200 IV fluids (ml): 1,200 Urine output (ml): 0 Pathology: none sent Condition: stable Disposition: PACU Indications for Procedure: Mr. Mcclure is a 63-year-old male with a history of L4-5 spondylosis with stenosis, neurogenic claudication, radiculopathy, and low back pain following a work-related injury on 04/15/2024. Patient reports sharp burning lumbar pain radiating to the right groin and bilateral lower extremities with associated tingling and burning sensation. Currently manages pain with Gabapentin and Celebrex with minimal relief. Physical examination reveals paralumbar tenderness, positive straight leg raise test, L4-5 dermatomal deficit, and 4/5 strength in bilateral lower extremities. CT myelogram demonstrates severe spinal stenosis at L4-5 level. Patient has failed conservative management including physical therapy, activity modification, and medications. After thorough discussion of risks, benefits, and alternatives, patient has elected to proceed with L4-5 laminectomy decompression. Pre-operative clearance has been requested from PCP, and surgery will be scheduled at [facility]. Patient has been advised to remain off work until further notice and continue home exercises as tolerated. Description of Procedure: L4-5 LAMINECTOMY The patient was seen and examined in the preoperative area. All preoperative protocols were followed. Informed consent was obtained, risks and benefits of the procedure were discussed at length. Risks including bleeding infection damage to the surrounding tissue and risk of reoperation were discussed with the patient. Risk of anesthesia up to and including was discussed with the patient. These are outlined in the risk review. They were willing to accept the se risks and all of the risks of surgery. The patient was given a weight-based dose of antibiotics in the form of [Ancef]. The patient was seen and evaluated by the anesthesia team who deemed them fit for surgery. The site was marked, the patient was willing to proceed with the procedure. The patient was transferred to the operative suite by the Department of anesthesia. They were then drifted off to sleep by the department anesthesia and [GETA] was performed. The patient tolerated this well. [Cespedes catheter was placed by nursing staff, atraumatically]. Once confirmation of lines and ventilation the patient was transferred to a [prone Nestor table very carefully]. All bony prominences including wrists, elbows, axilla, chest, hips, and thighs, and feet were padded very well. Special attention was paid to the genitalia and these were padded accordingly. SCDs were placed on bilateral lower extremities and were connected. Arms were well padded and placed [on arm boards up and out in the 90/90 position]. Once in position, again we confirmed good ventilation capabilities and that lines were running appropriately. The patient's thoracic] spine was then exposed. 1010s were placed outlining the incision site. Standard alcohol was used to clean the incision site and allowed to dry. C-arm was used to biomark the patient and confirm level for incision which was marked with a skin marker. Operative briefing was performed with all teams and everyone in agreement to proceed. The patient was then prepped and draped in a normal sterile fashion. Timeout was then performed and all parties w ere in agreement with the procedure to be performed. Midline skin incision made and subperiosteal dissection taken down over the lamina of L4-5 in a mini open approach. Bilateral take down was done with subperiosteal dissection. There was increased bleeding from ST and bone due to pts anticoagulation status Facet joints located and protected. Ashton 4 was placed at the pars of L4 to angelo a lateral image taken to confirm levels for operation. Bilateral Laminectomy, partial medial facetectomy and foraminotomies were then performed at L4-5 using high speed allison, 2-0 up-biting curette, 6-0 kerrison and 4-0 kerrison rongeurs. Ligamentum was extremely hypertrophied and large and causing severe impingement. Ligamentum was removed. Deep facet joints capsule was removed along with cysts that were found deep from the facets. Foraminotomies done with kerrison and checked with a Boateng ball probe. Once decompression completed, meticulous hemostasis was done with floseal, paddies and gel foam. The wound bed was then irrigated with 6 L Abx Anfect and Gen followed by 6L NSS. The wound was inspected. Good decompression noted with no injury. X Ray taken AP and lateral with markers to angelo the decompression. Surgicel was placed on the dura. 2g Vanco powder placed in the wound. Deep subfacial drain was placed and secured to the skin with a stitch. We then proceeded with closure. #1 PDS placed in the facia. 0 Vicryl placed in the deep subq and 2-0 in the superficial. Kaiser placed in the skin. Wound edges approximated very well. The wound was then cleaned and dressed sterilly with adaptic, 4x4, abd and tape. The patient was transferred back to their hospital bed atraumatically. The patient was then awakened and extubated by the department of anesthesia having tolerated the procedure very well with no complications. They were transferred to the postoperative care unit in stable condition.
[2024-09-06] MEDS ORDERED: CYCLOBENZAPRINE 5 MG TAB PO PRN (09:51)
[2024-09-06] MEDS ORDERED: MAGNESIUM HYDROXIDE 2,400 MG/30 ML CUP PO PRN (09:51)
[2024-09-06] MEDS ORDERED: SENNOSIDES-DOCUSATE SODIUM 1 EACH TAB PO PRN (09:51)
[2024-09-06] MEDS ORDERED: HYDROcodone/APAP 5-325MG 1 EACH TAB PO PRN (09:51)
[2024-09-06] MEDS ORDERED: HYDROmorphone 0.5 MG/0.5 ML SYRINGE IVP PRN (09:51)
[2024-09-06] MEDS: HYDROmorphone 0.5 MG/0.5 ML SYRINGE IVP PRN (09:54)
[2024-09-06] MEDS: ACETAMINOPHEN TAB 325 MG TAB PO SCH (13:40)
[2024-09-06 13:41] LABS: Glucose,Whole Blood 198 mg/dL (70-110)
[2024-09-06] MEDS: INSULIN LISPRO (HumaLOG) 100 UNIT/ML 10 mL VL SQ ONE (13:55)
[2024-09-06] MEDS: GABAPENTIN 300 MG CAP PO SCH (16:44)
[2024-09-06] MEDS: HYDROcodone/APAP 10-325MG 1 EACH TAB PO PRN (16:48)
[2024-09-06 20:34] LABS: Glucose,Whole Blood 145 mg/dL (70-110)
[2024-09-06] MEDS: HYDROmorphone 1 MG/ML 1 ML SYRINGE IVP PRN (20:38)
[2024-09-07 07:36] LABS: Glucose,Whole Blood 141 mg/dL (70-110)
[2024-09-07] MEDS: INSULIN LISPRO (HumaLOG) 100 UNIT/ML 10 mL VL SQ SCH (07:54)
[2024-09-07 07:56] VITALS: PULSE 71; TEMP 97.7
--- NOTE | 2024-09-07 08:22 | P.PN ---
Subjective Progress Note Date: 09/07/24 Principal diagnosis: 1.L4-5 spondylosis with stenosis 2.Lower extremity radiculopathy 3. Neurogenic claudication 4. Low back pain Patient seen and examined this morning. Patient is resting comfortably in bed. He does report that he had some bouts of nausea last night, has since resolved. Patient states that he has been ambulatory to the restroom multiple times throughout the afternoon yesterday and evening. He states that he is tolerating activity well. Informed patient that physical therapy will be in to work with him today. Discussed with patient that if he is doing well with therapy and his pain is managed that he may be discharged later today versus danielle orr 09/08/2024. Surgical incision to the lumbar spine, dressing is clean dry and intact with no shadowing noted. No acute concerns. Objective - Vital Signs Vital signs: Vital Signs Temp 98 F 09/07/24 01:14 Pulse 70 09/07/24 01:14 Resp 16 09/07/24 01:14 BP 129/85 09/07/24 01:14 Pulse Ox 95 09/07/24 01:14 FiO2 Intake & Output 09/06/24 09/06/24 09/07/24 06:59 18:59 06:59 Intake Total 2176 260 Output Total 500 Balance 1676 260 Weight 112.9 kg Intake: IV 2176 Intake, IV Titration 260 Amount Lactated Ringers 1,000 ml 160 @ 20 mls/hr IV .Q24H KARAN Rx#:[id number] ceFAZolin 2 gm In Sodium 100 Chloride 0.9% 50 ml @ 100 mls/hr IVPB Q8HR KARAN Rx# :[id number] Output: Urine 300 Estimated Blood Loss 200 Other: Voiding Method Toilet Toilet # Voids 2 - Exam Physical Examination General: The patient is awake and alert, in no acute distress. Skin: Skin is warm and dry with no obvious rashes or lesions. Surgical incision to the lumbar spine, dressing is clean dry and intact with no shadowing noted. Eye: Pupils are equal, round and reactive to light, extra-ocular movements are intact; there is normal conjunctiva bilaterally. Neck: The neck is supple, there is no tenderness and ROM intact. Respiratory: Respirations are non-labored. Gastrointestinal: Soft, non-distended, non-tender abdomen. Back: There is no tenderness to palpation in the midline, paralumbar, parathoracic or buttocks region. There is no obvious deformity. Musculoskeletal: ROM limited secondary to pain and stiffness from surgical procedure. Right: Shoulder abduction 5/5, elbow flexors 5/5, wrist dorsiflexors 5/5. finger abductor 5/5, orthopedic physical therapist 5/5, hip flexor 4/5, knee flexor 4/5, ankle dorsiflexor 5/5, ankle plantarflexion 5/5 and extensor hallucis 5/5 Left: Shoulder abduction 5/5, elbow flexors 5/5, wrist dorsiflexors 5/5. finger abductor 5/5, orthopedic physical therapist 5/5, hip flexor 4/5, knee flexor 4/5, ankle dorsiflexor 5/5, ankle plantarflexion 5/5 and extensor hallucis 5/5. Neurological: CN 2-12 intact. There are no obvious motor or sensory deficits. Movement and coordination equal and intact. Sensory exam to light touch intact C5-T1 and intact from L2-S1. Reflexes 2/4 in bilateral upper and lower extremities. Negative Hoffmans, babinski, and clonus signs. Psychiatric: Cooperative, appropriate mood & affect, normal judgment. - Labs Labs: Abnormal Lab Results - Last 24 Hours (Table) 09/06/24 09/06/24 09/06/24 Range/Units 06:50 13:39 20:32 POC Glucose (mg/dL) 162 H 198 H 145 H (70-110) mg/dL Assessment and Plan Assessment: Postop day 1 L4-L5 laminectomy Plan: -Appreciate network consultant and team management. -Activity: Ambulate QID, OOB all meals, up and about, limit lifting bending twisting to less than 5 lbs. Use walker or cane if needed for stability. -Daily PT/OT, increase ambulation strength and balance. -Pain control: Adequate at this time -Meds: reviewed -GI ppx: senna, Miralax -DVT PPX: Aspirin 81mg daily, patient may begin Eliquis 72hrs post-op -Hygiene: Maintain incision clean and dry. May change dressing as needed, please document in notes if performed. Meticulous cleaning after BMs away from the incision site -Encourage IS 10x/hr -Dispo: Anticipate discharge home with homecare later today versus tomorrow 09/08/2024 *I reviewed and discussed this case with my attending Dr. Dorado, whom has reviewed this chart and films and is in agreement with assessment and plan of care as outlined above. I have personally seen and examined the patient, performed the documentation and the assessment and plan as written. Number of minutes spent on the visit: [ ].
[2024-09-07] MEDS ORDERED: HYDROcodone/APAP 5-325MG 1 EACH TAB PO PRN (08:24)
[2024-09-07] MEDS: CYCLOBENZAPRINE 5 MG TAB PO SCH (09:01)
[2024-09-07] MEDS: ASPIRIN 81 MG PO SCH (09:01)
[2024-09-07] MEDS: ATORVASTATIN 40 MG TAB PO SCH (09:17)
[2024-09-07] MEDS: AMIODARONE 200 MG TAB PO SCH (09:17)
[2024-09-07] MEDS: carvediloL 12.5 MG TAB PO SCH (09:17)
[2024-09-07] MEDS: DAPAGLIFLOZIN PROPANEDIOL 10 MG TABLET PO SCH (09:17)
[2024-09-07] MEDS: CALCIUM CARBONATE 500 MG CHEWABLE PO PRN (09:17)
[2024-09-07 10:53] LABS: Basophils # (A) 0.02 X 10*3/uL (0.00-0.10); Basophils % (A) 0.2 %; Eosinophils # (A) 0 X 10*3/uL (0.04-0.35); Eosinophils % (A) 0 %; HGB 13.1 g/dL (13.0-17.0); Lymphocytes # (A) 0.47 X 10*3/uL (0.90-5.00); Lymphocytes % (A) 4.8 %; MCH 31.7 pg (27.0-32.0); MCV 99.3 FL (80.0-97.0); Monocytes # (A) 1.08 X 10*3/uL (0.20-1.00); Monocytes % (A) 11.1 %; NRBC Per 100 WBC 0 X 10*3/uL (0.00-0.01); Neutrophils # (A) 8.06 X 10*3/uL (1.80-7.70); Neutrophils % (A) 83.2 %; Platelet Count 105 X 10*3/uL (140-440); RBC 4.13 X 10*6/uL (4.40-5.60); RDW 14.7 % (11.5-14.5)
[2024-09-07 11:27] LABS: BUN/Creat Ratio 17.73 Ratio (12.00-20.00); Blood Urea Nitrogen 19.5 mg/dL (9.0-27.0); Calcium 9.1 mg/dL (8.7-10.3); Carbon Dioxide 21.6 mmol/L (21.6-31.8); Chloride 98 mmol/L (96-109); Glucose 139 mg/dL (70-110); Potassium 4.8 mmol/L (3.5-5.5); Sodium 134 mmol/L (135-145)
[2024-09-07 12:30] LABS: Glucose,Whole Blood 130 mg/dL (70-110)
[2024-09-07] MEDS: HYDROcodone/APAP 10-325MG 1 EACH TAB PO PRN (12:59)
--- NOTE | 2024-09-07 12:59 | P.DS ---
Providers Date of admission: 09/06/24 Expected date of discharge: 09/07/24 Attending physician: Nawaf Dorado DO Consults: 09/06/24 09:56 Consult Physician Routine Consulting Provider: Hermilo Souza Reason/Comments: Medical Management s/p L4-5 BILATERAL LAMINECTOMY, PARTIAL MEDIAL FACETECTO Do you want consulting provider notified?: Yes Primary care physician: Nupur Bertrand Chaffee Hospital Course: Hospital Course: The patient was evaluated preoperatively and found to have the diagnosis of L4-L5 spondylosis with stenosis. They underwent appropriate preoperative care and were willing to undergo the intended procedure. They underwent a successful L4-L5 decompressive laminectomy, were recovered appropriately and sent to the floor. While on the floor they worked with physical therapy, occupational therapy and nursing to enhance their recovery experience. Their pain was well controlled through their stay and they were started on appropriate medications, DVT ppx modalities, activity and dietary needs. Daily labs were monitored closely, and transfusions were only used when necessary. Medicine as well as other consulting services have made their input and have helped with our team approach and multidisciplinary care. PT milestones have been met and passed and they have made the recommendation of home for this patient and treating providers agree with this care path. The patient will be discharged home with appropriate medications, instructions and follow-up information and in stable condition. Patient Condition at Discharge: Good Plan - Discharge Summary Discharge Rx Participant: No New Discharge Prescriptions: New Gabapentin [Neurontin] 300 mg PO TID #90 cap Sennosides/Docusate Sodium [Senna Plus 8.6-50 mg Tablet] 2 each PO DAILY PRN #20 tab PRN Reason: Constipation cefaDROXiL [Duricef] 500 mg PO Q12HR #10 cap Cyclobenzaprine [Flexeril] 5 mg PO TID PRN #40 tablet PRN Reason: Muscle Spasm HYDROcodone/APAP 10-325MG [Eugene 10-325] 1 tab PO Q4-6H PRN #42 tab PRN Reason: Pain No Action Atorvastatin [Lipitor] 40 mg PO DAILY Gabapentin [Neurontin] 300 mg PO TID Apixaban [Eliquis] 5 mg PO BID Insulin Aspart [NovoLOG] See Protocol SQ ACHS Ergocalciferol [Vitamin D2 (1250 Mcg = 49773 Iu)] 1,250 mcg PO BALLARD Sacubitril/Valsartan [Entresto 49 mg-51 mg Tablet] 1 tab PO BID Aspirin EC [Ecotrin Low Dose] 81 mg PO DAILY carvediloL [Coreg] 25 mg PO BID Semaglutide [Ozempic] 1 mg SQ SA Furosemide [Lasix] 20 mg PO DAILY Dapagliflozin Propanediol [Farxiga] 10 mg PO DAILY Spironolactone [Aldactone] 25 mg PO DAILY Amiodarone [Cordarone] 200 mg PO DAILY Discharge Medication List Apixaban [Eliquis] 5 mg PO BID 08/25/20 [History] Atorvastatin [Lipitor] 40 mg PO DAILY 08/25/20 [History] Gabapentin [Neurontin] 300 mg PO TID 08/25/20 [History] Insulin Aspart [NovoLOG] See Protocol SQ ACHS 08/25/20 [History] Aspirin EC [Ecotrin Low Dose] 81 mg PO DAILY 04/20/24 [History] Dapagliflozin Propanediol [Farxiga] 10 mg PO DAILY 04/20/24 [History] Ergocalciferol [Vitamin D2 (1250 Mcg = 50351 Iu)] 1,250 mcg PO BALLARD 04/20/24 [History] Furosemide [Lasix] 20 mg PO DAILY 04/20/24 [History] Sacubitril/Valsartan [Entresto 49 mg-51 mg Tablet] 1 tab PO BID 04/20/24 [History] Semaglutide [Ozempic] 1 mg SQ SA 04/20/24 [History] Amiodarone [Cordarone] 200 mg PO DAILY 09/01/24 [History] Spironolactone [Aldactone] 25 mg PO DAILY 09/01/24 [History] carvediloL [Coreg] 25 mg PO BID 09/01/24 [History] Cyclobenzaprine [Flexeril] 5 mg PO TID PRN #40 tablet 09/07/24 [Rx] Gabapentin [Neurontin] 300 mg PO TID #90 cap 09/07/24 [Rx] HYDROcodone/APAP 10-325MG [Eugene 10-325] 1 tab PO Q4-6H PRN #42 tab 09/07/24 [Rx] Sennosides/Docusate Sodium [Senna Plus 8.6-50 mg Tablet] 2 each PO DAILY PRN #20 tab 09/07/24 [Rx] cefaDROXiL [Duricef] 500 mg PO Q12HR #10 cap 09/07/24 [Rx] Follow up Appointment(s)/Referral(s): Nawaf Dorado DO [Doctor of Osteopathic Medicine] - 2 Weeks Activity/Diet/Wound Care/Special Instructions: Spine Discharge and Recovery Instructions Date of Surgery: 09/06/2024 Diagnosis: L4-L5 spondylosis with stenosis Procedure: L4-L5 decompressive laminectomy Medications: See medication list All medication refills should be obtained through your primary care doctor or your clinic spine surgeon. Please discuss prescription refills at your follow up appointment. Do not call the hospital for medication refills. Activity: Encourage ambulation with assist of walker, Up and about 6-8x daily PT/OT daily work on balance, strength and mobility Up in chair with all meals Shower daily Brace: Use brace when up and about, do not wear in bed or shower Dressing: Leave your dressing in place for a total of 3 days post operatively. Then you may remove your dressing and leave open to air. Keep the area clean and if not able to keep area clean, then cover with sterile gauze and tape. Showering: You may shower 3 days after your procedure allowing soap and water to run over incision. Do not scrub. Do not soak. Blot dry. Follow up: Please confirm a follow up appointment with your surgeon 2 weeks post operatively. Please make an appointment to follow up with your PCP in 1-2 weeks after surgery for evaluation '3 phase, 3-week plan' POST OP WEEKS 1-3 1. Lifting/carrying/pushing/pulling limited to less than 5 pounds. 2. Do not sit for longer than 15 minutes at one time. Get up and walk around. Prolonged sitting is NOT advised. If you lay down, see if you can tolerate laying down on you front (belly side) 3. Walk for periods of 15 minutes = 1 mile but no longer; do it multiple times times each day. 4. Ice your low back after activity. POST OP WEEKS 3-6 1. Lifting limited to less than 20 pounds. 2. Do not sit for longer than 30 minutes at a time. Frequently change positions. Use a sit-to stand workstation or take frequent breaks from sitting if you have returned to work. 3. Walk for 30 minutes each day. If possible, do these three or more times a day POST OP WEEKS 6+ At your 6-week appointment we will give you a physical therapy referral to focus on a core stabilization and strengthening program. You should also work on leg & buttock strengthening, hamstring & quadriceps stretching, and continue a low impact aerobic activity program such as swimming, walking, or riding a stationary bicycle. During the initial 6 weeks after your surgery, you are at the highest risk of re-injuring your spine. You should generally avoid BLT's (bending, lifting and twisting combination motions) and follow the above guidelines to reduce the chance of reinjury. You can anticipate post op appointments in our office at approximately 3 weeks and 6 weeks after your surgery. INCISION CARE: If your incision is not draining you do NOT need to cover it with a dressing. Keep your incision clean, dry and intact. In most cases, we apply skin glue, juni or sutures to the incision at the time of surgery. This will be like a crust or have the appearance of a scab and will fall off in time on its own. The stitches or juni need to be removed at 3 weeks post op appointment. You may begin to shower 3 days after surgery (this allows the glue to mccord well). However, please avoid scrubbing the incision site or peeling off any of the skin glue. This will ensure optimal healing of your incision. Also, during this time avoid soaking the incision area in water - this includes swimming pools, hot tubs or baths. No ointments, lotions or oils on the incision until your surgeon allows. Leave juni, sutures or glue in place. Neurological dysfunction that comes on suddenly can also be a sign of a stroke. Below some common symptoms of a stroke are listed: B - balance difficulty such as sudden onset walking or leaning to one side - NEW E - eye problem such as sudden double vision or trouble seeing on one side - NEW F - Facial weakness or numbness on one side - NEW A - Arm or leg weakness or numbness on one side - NEW S - Slurred speech or difficulty with word finding - NEW T - Time is BRAIN! Call 911 as soon as you recognize these symptoms Diet: Consume a regular diet rich in vegetables and lean protein such as chicken or fish. You should consume in a ratio of approximately 20% fats|40% carbohydrates|40%protein. Vegetables, sweet potatoes, brown rice or quinoa are examples of good carbohydrates. Chips, white bread, cookies and sweets/sugar are examples of bad carbohydrates. Limit your bad carbs, go wild with good carbs. "Life's Simple 7" Guidelines as per [place] [employer] These will help you reclaim your life after surgery and wirer helper in your recovery, keeping in mind your restrictions. (1) Get Active. Physical activity can help people lose weight, control high blood pressure and cholesterol, feel emotionally better, and sleep better. (2) Control Cholesterol. Avoid a diet high in saturated fat, trans fat, & cholesterol. Limit whole milk & cream, ice cream, butter, egg yolks, processed meats (like sausage and hot dogs), and fatty meats. Choose healthy foods that are low in saturated fat, trans fat and cholesterol which include: Fruits and vegetables, fiber rich grain products (like whole grain pasta and brown rice), lean meat such as chicken, fish, nuts, seeds, and legumes. (3) Eat Better. Eat small portions. Shop at the grocery with a list and do not stray from it. Tips for a healthy diet include: Limit sodium intake to less than 1500mg daily, avoid prepackaged, processed, and fast foods, choose a diet rich in fruits, vegetables, and whole grain, high fiber foods, and limit saturated & cholesterol in your diet. (4) Manage Blood Pressure. If you have high blood pressure, you should have a cuff at home so that you can check your blood pressure regularly. Be sure you have a good cuff. An arm one is generally better than a wrist one. Bring the cuff to a doctor's appointment to validate that the measurements that your cuff are taking are accurate. Take your blood pressure twice daily when you are sitting down and relaxing. Record the numbers in a log and bring this log with you to your doctors' appointments. (5) Lose Weight if your BMI is above 25. A healthy BMI is between 19-25. To calculate Your BMI, you may use a Standard BMI Calculator on the NIH BMI website: <www.nhlbi.nih.gov/guidelines/obesity/BMI/bmicalc.htm>. Weigh oneself daily. If you are overweight, set a goal to lose weight. A pound a week loss if needed is a good target. (6) Reduce Blood Sugar. Limit foods and liquids with "added sugars." (Added sugars include sucrose, fructose, glucose, maltose, dextrose, high fructose corn syrup, corn syrup, concentrated fruit juice and honey). (7) Stop Smoking. If you smoke, quitting smoking is one of the best things that you can do for your health. Smoking increases your risk of heart attack, stroke, and peripheral vascular disease, which is a build-up of plaque in your arteries. Please discard all the cigarettes and lighters in your house. Have a plan for what you will do when you have the urge to smoke. Direct and second- hand smoke shortens your life as well as the lives of your family, friends and others around you. For your health and the health of those around you, please consider quitting! Proper Bending Body Mechanics: Maintain a wide stance with one foot slightly in front of the other. Keep your back straight. Bend utilizing the strength in your hips and knees. Do not bend at the waist. Maintain the lifted object at your waist-level close to your body. Avoid lifting weight that causes immediately pain or pain anywhere in the body afterwards. Smoking/Nicotine If there was ever one thing that you could do to increase your overall health, decrease your risk of cardiovascular problems by about 39% the second you make the choice, it is to STOP SMOKING. Your body's most instant gratification is th e second you stop smoking. We have all heard the studies, read the articles but it is true, smoking is extremely bad for your overall health, and moreover it is detrimental to your bone health. Nicotine, IN ANY FORM, kills bone cells, prevents your body from healing fractures, and significantly prolongs healing after surgery. In spine surgery specifically, it increases your risk of not healing your bones to create a fusion and increases your risk of having a revision surgery due to this up to 60%. I know it is hard. I know it feels impossible. But there are ways. Take con trol of your life. We are here to help you through it. And when you are ready, ask us and we can direct you to help if you desire. Use the START Plan to Quit Smoking (please visit the [employer]org website listed below for more information): S = Set a quit date. Choose a date within the next 2 weeks, so you have enough time to prepare without losing your motivation to quit. If you mainly smoke at work, quit on the weekend, so you have a few days to adjust to the change. T = Tell family, friends, and co-workers that you plan to quit. Let your friends and family in on your plan to quit smoking and tell them you need their support and encouragement to stop. Look for a quit kailey who wants to stop smoking as well. You can help each other get through the rough times. A = Anticipate and plan for the challenges you'll face while quitting. Most people who begin smoking again do so within the first 3 months. You can help yourself make it through by preparing ahead for common challenges, such as nicotine withdrawal and cigarette cravings. R = Remove cigarettes and other tobacco products from your home, car, and work. Throw away all your cigarettes (no emergency pack!), lighters, ashtrays, and matches. Wash your clothes and freshen up anything that smells like smoke. Shampoo your car, clean your drapes and carpet, and steam your furniture. T = Talk to your doctor about getting help to quit. Your doctor can prescribe medication to help with withdrawal and suggest other alternatives. If you can't see a doctor, you can get many products over the counter at your local pharmacy or grocery store, including the nicotine patch, nicotine lozenges, and nicotine gum. Resources for Quitting Smoking: <https://www.[place].gov/documents/[facility]/Quit _Tobacco_Resources_for_patients_313480_7.pdf> Supplementation: Take recommended dosages of Vitamin D and Calcium to help fortify your bones and help them to heal. See your health maintenance packet for dosages and recommended levels. DVT/VTE prophylaxis: You will be given compression stockings from the hospital. Wear these daily for the first two weeks after surgery. You may take them off at night. You may be prescribed a medication to help thin your blood. Take this as directed. If you are not prescribed this medication, early and frequent ambulation has been shown to be the best prophylaxis to deep vein thrombosis and sequelae related to this event. Discharge Disposition: HOME SELF-CARE
[2024-09-07 13:24] VITALS: BP 128/83; RESP 18
--- NOTE | 2024-09-07 14:09 | P.CONS ---
History of Present Illness - Reason for Consult Congestive heart failure - History of Present Illness 59-year-old male admitted for L4-L5 lumbar laminectomy partial medial facetectomy and foraminotomy and complete neural decompression. Patient is bit hyponatremic patient pain is well-controlled clinically doing well patient had L4-L5 stenosis and radiculopathy patient is wishing to go home. REVIEW OF SYSTEMS: All other systems are negative except those mentioned in the HPI PHYSICAL EXAMINATION: GENERAL: The patient is alert and oriented x3, not in any acute distress. Well developed, well nourished. HEENT: Pupils are round and equally reacting to light. EOMI. No scleral icterus. No conjunctival pallor. Normocephalic, atraumatic. No pharyngeal erythema. No thyromegaly. CARDIOVASCULAR: S1 and S2 present. No murmurs, rubs, or gallops. PULMONARY: Chest is clear to auscultation, no wheezing or crackles. ABDOMEN: Soft, nontender, nondistended, normoactive bowel sounds. No palpable organomegaly. MUSCULOSKELETAL: No joint swelling or deformity. EXTREMITIES: No cyanosis, clubbing, or pedal edema. NEUROLOGICAL: Gross neurological examination did not reveal any focal deficits. SKIN: No rashes. Assessment and plan -Number lactic apathy status post surgery as mentioned above patient is medically doing well can be discharged from medical perspective -Condition heart failure chronic systolic function patient presently not in acute exacerbation patient can be resumed on his Entresto Aldactone Coreg, Farxiga -Atrial fibrillation presently sinus rhythm probably paroxysmal resumed on his home medications -Coronary artery disease -Type 2 diabetes mellitus- -Hyperlipidemia -Hypertension For all above-mentioned medical problems patient can be safely resumed on his home medications patient is okay to be discharged from medical perspective Past Medical History Past Medical History: Atrial Fibrillation, Coronary Artery Disease (CAD), COPD, Diabetes Mellitus, Hyperlipidemia, Hypertension Additional Past Medical History / Comment(s): AICD - shocked pt. once on 06/30/24, Type I DM, neuropathy, injured back lifting 2023 History of Any Multi-Drug Resistant Organisms: None Reported Past Surgical History: AICD, Coronary Bypass/CABG, Heart Catheterization, Hernia Repair, Orthopedic Surgery Additional Past Surgical History / Comment(s): 5 vessel CABG 08/2019. [employer] AICD. Rt Knee surg. Abd hernia. Colonoscopy Past Anesthesia/Blood Transfusion Reactions: No Reported Reaction Type of Cardiac Device: AICD Device Placement Date:: 02/08/20 Smoking Status: Former smoker - Past Family History Mother Family Medical History: No Reported History Father Family Medical History: Coronary Artery Disease (CAD) Medications and Allergies Home Medications Medication Instructions Recorded Confirmed Type Apixaban [Eliquis] 5 mg PO BID 08/25/20 09/06/24 History Atorvastatin [Lipitor] 40 mg PO DAILY 08/25/20 09/06/24 History Gabapentin [Neurontin] 300 mg PO TID 08/25/20 09/06/24 History Insulin Aspart [NovoLOG] See Protocol SQ ACHS 08/25/20 09/06/24 History Aspirin EC [Ecotrin Low Dose] 81 mg PO DAILY 04/20/24 09/06/24 History Dapagliflozin Propanediol [Farxiga] 10 mg PO DAILY 04/20/24 09/06/24 History Ergocalciferol [Vitamin D2 (1250 1,250 mcg PO BALLARD 04/20/24 09/06/24 History Mcg = 39433 Iu)] Furosemide [Lasix] 20 mg PO DAILY 04/20/24 09/06/24 History Sacubitril/Valsartan [Entresto 49 1 tab PO BID 04/20/24 09/06/24 History mg-51 mg Tablet] Semaglutide [Ozempic] 1 mg SQ SA 04/20/24 09/06/24 History Amiodarone [Cordarone] 200 mg PO DAILY 09/01/24 09/06/24 History Spironolactone [Aldactone] 25 mg PO DAILY 09/01/24 09/06/24 History carvediloL [Coreg] 25 mg PO BID 09/01/24 09/06/24 History Cyclobenzaprine [Flexeril] 5 mg PO TID PRN #40 tablet 09/07/24 Rx Gabapentin [Neurontin] 300 mg PO TID #90 cap 09/07/24 Rx HYDROcodone/APAP 10-325MG [Carmine 1 tab PO Q4-6H PRN #42 tab 09/07/24 Rx 10-325] Sennosides/Docusate Sodium [Senna 2 each PO DAILY PRN #20 tab 09/07/24 Rx Plus 8.6-50 mg Tablet] cefaDROXiL [Duricef] 500 mg PO Q12HR #10 cap 09/07/24 Rx Allergies Allergy/AdvReac Type Severity Reaction Status Date / Time fish derived Allergy Swelling/Ra Verified 09/06/24 06:55 sh Physical Exam Vitals: Vital Signs Temp Pulse Resp BP Pulse Ox 09/07/24 13:24 97.7 F 71 18 128/83 99 09/07/24 07:01 97.7 F 71 156/89 97 09/07/24 01:14 98 F 70 16 129/85 95 09/06/24 19:32 97.6 F 69 16 144/89 95 09/06/24 14:24 97.3 F L 70 18 150/93 97 Intake and Output 09/06/24 09/07/24 09/07/24 22:59 06:59 14:59 Intake Total 50 210 Output Total 300 30 Balance -250 210 -30 Intake: Intake, IV Titration 50 210 Amount Lactated Ringers 1,000 ml 160 @ 20 mls/hr IV .Q24H [facility] Rx#:[id number] ceFAZolin 2 gm In Sodium 50 50 Chloride 0.9% 50 ml @ 100 mls/hr IVPB Q8HR [facility] Rx# :[id number] Output: Drainage 30 Back 30 Urine 300 Other: Voiding Method Toilet # Voids 2 2 Results CBC & Chem 7: 09/07/24 06:12 09/07/24 06:12 Labs: Abnormal Lab Results - Last 24 Hours (Table) 09/06/24 09/07/24 09/07/24 Range/Units 20:32 06:12 06:12 RBC 4.13 L (4.40-5.60) X 10*6/uL MCV 99.3 H (80.0-97.0) FL RDW 14.7 H (11.5-14.5) % Plt Count 105 L (140-440) X 10*3/uL Immature Gran # 0.07 H (0.00-0.04) X 10*3/uL Neutrophils # 8.06 H (1.80-7.70) X 10*3/uL Lymphocytes # 0.47 L (0.90-5.00) X 10*3/uL Monocytes # 1.08 H (0.20-1.00) X 10*3/uL Eosinophils # 0 L (0.04-0.35) X 10*3/uL Sodium 134 L (135-145) mmol/L Anion Gap 14.40 H (4.00-12.00) mmol/L Glucose 139 H (70-110) mg/dL POC Glucose (mg/dL) 145 H (70-110) mg/dL 09/07/24 09/07/24 Range/Units 07:02 12:10 RBC (4.40-5.60) X 10*6/uL MCV (80.0-97.0) FL RDW (11.5-14.5) % Plt Count (140-440) X 10*3/uL Immature Gran # (0.00-0.04) X 10*3/uL Neutrophils # (1.80-7.70) X 10*3/uL Lymphocytes # (0.90-5.00) X 10*3/uL Monocytes # (0.20-1.00) X 10*3/uL Eosinophils # (0.04-0.35) X 10*3/uL Sodium (135-145) mmol/L Anion Gap (4.00-12.00) mmol/L Glucose (70-110) mg/dL POC Glucose (mg/dL) 141 H 130 H (70-110) mg/dL
[2024-09-07] MEDS ORDERED: SACUBITRIL/VALSARTAN 49 MG-51 MG TABLET PO SCH (21:00)
[2024-09-12] MEDS ORDERED: ERGOCALCIFEROL 1,250 MCG (50,000 IU) CAPSULE PO SCH (09:00)
== END 2024-09-07 14:21 | disposition home or self-care (01) ==
LOC: OR 05:48 → 5NMEDONC 13:25 → OR 09-07 14:21
PROVIDERS: ATTEND Orthopaedic Surgery
DX: M48.062 Spinal stenosis, lumbar region with neurogenic claudication (principal); M47.26 Other spondylosis with radiculopathy, lumbar region; I48.91 Unspecified atrial fibrillation; I25.10 Atherosclerotic heart disease of native coronary artery without angina pectoris; I10 Essential (primary) hypertension; J44.9 Chronic obstructive pulmonary disease, unspecified; E11.9 Type 2 diabetes mellitus without complications; E78.5 Hyperlipidemia, unspecified; Z95.1 Presence of aortocoronary bypass graft; Z95.810 Presence of automatic (implantable) cardiac defibrillator; Z79.01 Long term (current) use of anticoagulants; Z79.4 Long term (current) use of insulin; Z79.82 Long term (current) use of aspirin; Z79.85 Long-term (current) use of injectable non-insulin antidiabetic drugs
CPT/HCPCS: 97162; 80048; 85025; 72100; 63047; J3370; J1100; J0690 ×2; J2405 ×2; J1171 ×3; J0665